=== PATIENT | male | born 1965 | race American Indian/Alaskan Native ===

== ENCOUNTER 2018-12-24 05:56 | Day surgery (SDC) | payer MEDICARE ==
[2018-12-24] MEDS ORDERED: NEURONTIN PO NR (07:00)
[2018-12-24] MEDS ORDERED: NACL 0.9% 1000 ML 1,000 ML IV SCH (07:00)
[2018-12-24] MEDS ORDERED: VERSED IV NR (07:00)
[2018-12-24] MEDS ORDERED: MARCAINE 0.25% INFILTRATI ONE (07:29)
[2018-12-24] MEDS ORDERED: TRIPLE ANTIBIOTIC TP ONE (07:29)
[2018-12-24] MEDS ORDERED: ANCEF/STERILE WATER 2 GM/20 ML 2 GM/20 ML SYRINGE IV NR (07:38)
[2018-12-24] MEDS ORDERED: DOLOPHINE PO ONE (07:43)
[2018-12-24] MEDS ORDERED: DIPRIVAN 10 MG/ML IV ONE (07:51)
[2018-12-24] MEDS ORDERED: DILAUDID ONE (07:51)
--- NOTE | 2018-12-24 08:37 | Anesthesia Day of Surgery ---
Anesthesia Day of Surgery - Day of Surgery Patient Examined: Yes Patient H&P Reviewed: Yes Patient is NPO: Yes
--- NOTE | 2018-12-24 08:37 | Anesthesia Consultation ---
Anesthesia Consult and Med Hx Date of service: 12/24/18 - Airway Anesthetic Teeth Evaluation: Good ROM Head & Neck: Adequate Mental/Hyoid Distance: Adequate Mallampati Class: Class II Intubation Access Assessment: Probably Good - Pulmonary Exam CTA: Yes - Cardiac Exam Cardiac Exam: RRR - Pre-Operative Health Status ASA Pre-Surgery Classification: ASA3 Proposed Anesthetic Plan: General - Pulmonary Hx Smoking: Yes (STOPPED X 10 YRS) Hx Asthma: No Hx Respiratory Symptoms: No COPD: No Hx Sleep Apnea: Yes (DX SLEEP APNEA WITH CPAP USE.) - Cardiovascular System Hx Hypertension: Yes Hx Heart Attack/AMI: No Hx Percutaneous Transluminal Coronary Angioplasty (PTCA): No Hx Cardia Arrhythmia: No - Central Nervous System Hx Seizures: No CVA: No Hx Back Pain: Yes (CHRONIC BACK AND LEFT LEG PAIN) Hx Psychiatric Problems: Yes (Bipolar d/o) - Gastrointestinal Hx Gastroesophageal Reflux Disease: No - Endocrine Hx Renal Disease: No Hx Liver Disease: Yes (HBV) Hx Non-Insulin Dependent Diabetes: Yes - Other Systems Hx Obesity: Yes - Additional Comments Anesthesia Medical History Comments: No hx anesthetic complications. Will give home dose methadone and gabapentin in [facility] as patient did not take scheduled morning medications.
[2018-12-24] MEDS ORDERED: XYLOCAINE MPF 2% ONE (09:38)
[2018-12-24] MEDS ORDERED: NACL 0.9% IR ONE (09:41)
--- NOTE | 2018-12-24 09:42 | Post Operative Note ---
Date of procedure: 12/24/18 Pre-op diagnosis: PHIMOSIS SKIN LESION Post-op diagnosis: same Findings: SAME Procedure: CIRC EXCISION LESION Anesthesia: GETA Surgeon: LLOYD MIRANDA Estimated blood loss: minimal Pathology: list (SLIN AND FORESKIN) Specimen disposition: to lab Condition: stable Disposition: PACU
--- NOTE | 2018-12-24 09:43 | Operative Report ---
PREOPERATIVE DIAGNOSES: Severe phimosis and right thigh nodule. POSTOPERATIVE DIAGNOSES: Severe phimosis and right thigh nodule. PROCEDURE PERFORMED: Circumcision dorsal slit and excision of thigh nodule. SURGEON: Luis Angel Paulson M.D. ANESTHESIA: General. FINDINGS: This is a gentleman with severe phimosis. He is diabetic and could not retract the foreskin at all. It is erythematous and you could not see the head of the penis at all. He also has a lesion, right lateral thigh. Wants it excised. DESCRIPTION OF PROCEDURE: The patient was brought to the operating room and placed on the operating table. Following induction of anesthesia, placed in supine position, prepped and draped in usual sterile fashion. Using Betadine, we cleaned the foreskin as best as we could and a dorsal slit was carried out. We were then able to see the glans. Once we had the area marked out with a marking pencil, we will make the skin incision. A small ventral slit was carried out and using a curved Blank[place]hip, the infected and inflamed and thickened skin was excised. Hemostasis was assured with 3-0 Vicryl ties and the cautery as needed. Sutures were placed at 12, 3, 6, and 9 o'clock position and each quadrant was bisected. There was a large amount of redundant skin, which had to be trimmed and reconstructed. Wound was irrigated. The sutures were applied mostly with 3-0 and 4-0 chromic. The patient tolerated the procedure well. Hemostasis was excellent. Estimated blood loss was 5 mL. The patient was then rotated to his left and this large thigh lesion was excised. The area was undermined and we used 2 sutures of 2-0 nylon to approximate the skin. The patient tolerated the procedure well. He was brought to recovery room in stable condition. JOB# [id number] PAIGE/PADMA
--- NOTE | 2018-12-24 09:44 | Discharge Summary ---
Short Stay Discharge Plan Activity: other (NO SEX ) Weight Bearing Status: Full Weight Bearing Diet: diabetic Wound: open to air, keep clean and dry Special Instructions: other (ICE IN RR ) Durable Medical Equipment Needed Upon Discharge: other Follow up with: CRUZITO ARAYA MD [Primary Care Provider] - 7 Days LLOYD MIRANDA MD [Staff Physician] - 7 Days
--- NOTE | 2018-12-24 09:54 | Progress Note ---
Objective - Constitutional Vitals: Vital Signs - 12hr 12/24/18 12/24/18 12/24/18 07:10 07:22 08:05 Temperature 98.3 F 98.3 F Pulse Rate 85 85 Respiratory 22 22 20 Rate Blood Pressure 145/86 145/86 O2 Sat by Pulse 95 95 Oximetry - Labs CBC & Chem 7: 12/24/18 06:45 Labs: Abnormal lab results 12/24/18 12/24/18 Range/Units 06:45 06:59 Potassium 3.4 L (3.6-5.0) mmol/L POC Glucose 207 H (70-105) Medications & Allergies - Medications Allergies/Adverse Reactions: Allergies shellfish derived Adverse Reaction (Verified 09/25/13 10:55) Vomiting Home Medications: Home Medications Medication Instructions Recorded Confirmed Last Taken Type Citalopram [celeXA] 40 mg PO QDAY 07/22/15 12/12/18 07/22/15 History Furosemide [Lasix] 20 mg PO QDAY 07/22/15 12/12/18 07/22/15 History Gabapentin [Neurontin] 800 mg PO TID 07/22/15 12/12/18 07/22/15 History HYDROcodone/APAP 5-325 [Commiskey 1 each PO PRN PRN 07/22/15 12/12/18 07/22/15 History 5/325] Lisinopril [Zestril TAB] 20 mg PO QDAY 07/22/15 12/12/18 07/22/15 History Metformin HCl [Glucophage] 1,000 mg PO BID 07/22/15 12/12/18 07/22/15 History Methadone [Dolophine] 10 mg PO TID 07/22/15 12/12/18 07/22/15 History Pravastatin [Pravachol] 40 mg PO QHS 07/22/15 12/12/18 07/22/15 History risperiDONE [RisperiDONE] 4 mg PO BID 07/22/15 12/12/18 07/22/15 History Cyclobenzaprine [Flexeril 10 MG 10 mg PO PRN PRN 12/12/18 12/12/18 Unknown History TAB] Ibuprofen [Motrin] 800 mg PO Q8HR PRN 12/12/18 12/12/18 Unknown History Lispro Insulin [Humalog] 30 unit SQ BID 12/13/18 12/13/18 Unknown History Active Medications: Generic Name Dose Route Start Last Admin Trade Name Alexis PRN Reason Stop Dose Admin Gabapentin 900 mg 12/24/18 07:00 12/24/18 07:40 Neurontin PO 12/24/18 20:00 900 mg PREOP NR Administration Hydromorphone HCl 0.5 mg 12/24/18 08:39 Dilaudid IV 12/24/18 20:00 Q10MIN PRN Pain , Severe (7-10) Sodium Chloride 1,000 mls @ 75 mls/hr 12/24/18 07:00 12/24/18 07:04 Nacl 0.9% 1000 Ml IV 75 mls/hr DIRECT SHELLIE Administration Midazolam HCl 2 mg 12/24/18 07:00 12/24/18 07:41 Versed IV 12/24/18 23:59 2 mg PREOP NR Administration
[2018-12-24] MEDS: DILAUDID IV PRN ×2 (09:55→10:02)
[2018-12-24 11:04] VITALS: BP 151/97
--- NOTE | 2018-12-24 13:17 | Post Anesthesia Evaluation ---
- Post Anesthesia Evaluation Patient Participated: Yes Airway Patent: Yes Stable Respiratory Function: Yes Nausea/Vomiting: No Temp > 96.8F: Yes Pain Manageable: Yes Adequeate Hydration: Yes Anesthesia Complications: No
== END 2018-12-24 05:57 | disposition home or self-care (01) ==
LOC: OR 05:56
PROVIDERS: ATTEND Urology
DX: N47.1 Phimosis (principal); L91.8 Other hypertrophic disorders of the skin; E11.39 Type 2 diabetes mellitus with other diabetic ophthalmic complication; H42 Glaucoma in diseases classified elsewhere; E78.00 Pure hypercholesterolemia, unspecified; I10 Essential (primary) hypertension; G47.30 Sleep apnea, unspecified; M19.90 Unspecified osteoarthritis, unspecified site; F31.9 Bipolar disorder, unspecified; E66.9 Obesity, unspecified; Z68.43 Body mass index [BMI] 50.0-59.9, adult; Z91.81 History of falling; Z91.013 Allergy to seafood; Z79.899 Other long term (current) drug therapy; Z79.4 Long term (current) use of insulin; Z79.84 Long term (current) use of oral hypoglycemic drugs; Z87.891 Personal history of nicotine dependence
CPT/HCPCS: 11200; 36415; 54150; 82962; 84132; 88304; A4217; J1170; J2250; J2704; J7030; A6250

== ENCOUNTER 2022-06-28 10:29 | Inpatient (IN) | payer MEDICARE ==
--- NOTE | 2022-06-28 13:08 | XRay Report ---
CHEST 2 VIEWS INDICATION / CLINICAL INFORMATION: Dyspnea. COMPARISON: 12/11/2019 FINDINGS: SUPPORT DEVICES: None. HEART / MEDIASTINUM: No significant abnormality. LUNGS / PLEURA: There are patchy predominantly perihilar pulmonary opacities greater on the right. No effusion is seen. No pneumothorax. ADDITIONAL FINDINGS: No significant additional findings. IMPRESSION: 1. Mild patchy predominantly perihilar pulmonary opacities greater on the right. Signer Name: Phoenix Gutierrez MD Signed: 06/28/2022 1:04 PM Workstation Name: [id number]
[2022-06-28] MEDS ORDERED: SODIUM CHLORIDE 0.9% 1000 ML 1,000 ML IV ONE (13:40)
[2022-06-28 13:43] LABS: Basophils # (Auto) 0.1 K/mm3 (0.0-0.1); Basophils % (Auto) 0.7 % (0.0-1.8); Eosinophils # (Auto) 0.5 K/mm3 (0.0-0.4); Eosinophils % (Auto) 3.7 % (0.0-4.3); Hematocrit 28.3 % (35.5-45.6); Hemoglobin 8.9 gm/dl (11.8-15.2); Lymphocytes # (Auto) 1.2 K/mm3 (1.2-5.4); Mean Corpuscular HGB Conc 32 % (32-34); Mean Corpuscular Volume 79 fl (84-94); Monocytes # (Auto) 1.5 K/mm3 (0.0-0.8); Monocytes % (Auto) 12.3 % (0.0-7.3); Platelet Count 256 K/mm3 (140-440); Red Blood Count 3.56 M/mm3 (3.65-5.03); Red Cell Distribution Width 17.6 % (13.2-15.2)
[2022-06-28 14:11] LABS: Alanine Aminotransferase 7 units/L (7-56); Albumin 3.7 g/dL (3.9-5); BUN/Creatinine Ratio 19; Blood Urea Nitrogen 36 mg/dL (9-20); Calcium 8.8 mg/dL (8.4-10.2); Hemolysis Index 0
[2022-06-28 15:01] LABS: INR 0.94 (0.87-1.13)
[2022-06-28 15:02] LABS: Partial Thromboplastin Time 35.1 Sec. (24.2-36.6)
--- NOTE | 2022-06-28 16:05 | Emergency Department Report ---
ED Shortness of Breath HPI - General Chief Complaint: Dyspnea/Respdistress Stated Complaint: COUGH UP BLOOD Time Seen by Provider: 06/28/22 15:32 Source: patient Mode of arrival: Ambulatory Limitations: Language Barrier - History of Present Illness Initial Comments: Patient is a 57-year-old male presented emergency department with complaint of shortness of breath. Patient states that he has been coughing up blood. He states that this happened on today although he has had cough for his sleep for the past 1 week. He also notes right leg swelling but he states the swelling has been present for a while and states that he is he previously suffered an injury in the right leg and has swelling since 2019. Patient denies history of blood clots in the legs or lungs and is not currently on any blood thinners. He states he has not seen a case management associate nor has he had a stress test. He reports his past medical history is diabetes and hypertension. He denies any orthopnea states he sleeps on his side. He denies any chest pain fever. - Related Data Home Medications Medication Instructions Recorded Confirmed Last Taken Gabapentin [Neurontin] 800 mg PO TID 07/22/15 12/11/19 12/10/19 Metformin HCl [Glucophage] 1,000 mg PO BID 07/22/15 12/11/19 12/10/19 Pravastatin [Pravachol] 40 mg PO QHS 07/22/15 12/11/19 12/10/19 risperiDONE [RisperiDONE] 4 mg PO BID 07/22/15 12/11/19 12/10/19 Aspirin 81 mg PO DAILY 12/11/19 12/11/19 12/10/19 Methadone 40 mg PO TID 12/11/19 12/11/19 12/10/19 Previous Rx's Medication Instructions Recorded Last Taken Type Aspirin EC [Halfprin EC] 81 mg PO QDAY tablet 12/19/19 Unknown Rx Citalopram 40 mg PO DAILY #30 12/19/19 Unknown Rx Citalopram [Celexa] 40 mg PO DAILY tablet 12/19/19 Unknown Rx Cyclobenzaprine [Flexeril 10 MG 10 mg PO PRN PRN #12 12/19/19 Unknown Rx TAB] Methadone [Dolophine] 40 mg PO Q8HR #12 tablet 12/19/19 Unknown Rx Metoprolol [Lopressor TAB] 50 mg PO BID #60 tablet 12/19/19 Unknown Rx lisinopriL [Zestril TAB] 20 mg PO QDAY #30 12/19/19 Unknown Rx oxyCODONE /ACETAMINOPHEN [Percocet 1 tab PO Q6H PRN #8 tablet 12/19/19 Unknown Rx 5/325 mg] risperiDONE [RisperDAL] 1 mg PO BID tablet 12/19/19 Unknown Rx risperiDONE [RisperDAL] 3 mg PO BID tablet 12/19/19 Unknown Rx Allergies Allergy/AdvReac Type Severity Reaction Status Date / Time shellfish derived AdvReac Vomiting Verified 06/28/22 12:23 ED Review of Systems ROS: Stated complaint: COUGH UP BLOOD Other details as noted in HPI Constitutional: denies: chills, fever Eyes: denies: eye pain, eye discharge, vision change ENT: denies: ear pain, throat pain Respiratory: cough, shortness of breath, SOB with exertion. denies: wheezing Cardiovascular: denies: chest pain, palpitations Endocrine: no symptoms reported Gastrointestinal: denies: abdominal pain, nausea, diarrhea Genitourinary: denies: urgency, dysuria Musculoskeletal: denies: back pain, joint swelling, arthralgia Skin: denies: rash, lesions Neurological: denies: headache, weakness, paresthesias Psychiatric: denies: anxiety, depression Hematological/Lymphatic: easy bleeding. denies: easy bruising ED Past Medical Hx - Past Medical History Hx Hypertension: Yes (CXR - Cardiomegaly with diminished lung volumes) Hx Heart Attack/AMI: No Hx Diabetes: Yes Hx Liver Disease: Yes (HBV) Hx Renal Disease: No Hx Arthritis: Yes Hx Seizures: No Hx Asthma: Yes Hx COPD: No Hx HIV: No - Surgical History Additional Surgical History: back surgery x 4 - Social History Smoking Status: Former Smoker - Medications Home Medications: Home Medications Medication Instructions Recorded Confirmed Last Taken Type Gabapentin [Neurontin] 800 mg PO TID 07/22/15 12/11/19 12/10/19 History Metformin HCl [Glucophage] 1,000 mg PO BID 07/22/15 12/11/19 12/10/19 History Pravastatin [Pravachol] 40 mg PO QHS 07/22/15 12/11/19 12/10/19 History risperiDONE [RisperiDONE] 4 mg PO BID 07/22/15 12/11/19 12/10/19 History Aspirin 81 mg PO DAILY 12/11/19 12/11/19 12/10/19 History Methadone 40 mg PO TID 12/11/19 12/11/19 12/10/19 History Aspirin EC [Halfprin EC] 81 mg PO QDAY tablet 12/19/19 Unknown Rx Citalopram 40 mg PO DAILY #30 12/19/19 Unknown Rx Citalopram [Celexa] 40 mg PO DAILY tablet 12/19/19 Unknown Rx Cyclobenzaprine [Flexeril 10 MG 10 mg PO PRN PRN #12 12/19/19 Unknown Rx TAB] Methadone [Dolophine] 40 mg PO Q8HR #12 tablet 12/19/19 Unknown Rx Metoprolol [Lopressor TAB] 50 mg PO BID #60 tablet 12/19/19 Unknown Rx lisinopriL [Zestril TAB] 20 mg PO QDAY #30 12/19/19 Unknown Rx oxyCODONE /ACETAMINOPHEN [Percocet 1 tab PO Q6H PRN #8 tablet 12/19/19 Unknown Rx 5/325 mg] risperiDONE [RisperDAL] 1 mg PO BID tablet 12/19/19 Unknown Rx risperiDONE [RisperDAL] 3 mg PO BID tablet 12/19/19 Unknown Rx ED Physical Exam - General Limitations: Language Barrier General appearance: alert, in no apparent distress - Head Head exam: Present: atraumatic, normocephalic - Eye Eye exam: Present: normal appearance - ENT ENT exam: Present: mucous membranes moist - Neck Neck exam: Present: normal inspection - Respiratory Respiratory exam: Present: normal lung sounds bilaterally. Absent: respiratory distress - Cardiovascular Cardiovascular Exam: Present: regular rate, normal rhythm. Absent: systolic murmur, diastolic murmur, rubs, gallop - GI/Abdominal GI/Abdominal exam: Present: soft, normal bowel sounds - Rectal Rectal exam: Present: deferred - Extremities Exam Extremities exam: Present: other (There is edema noted bilaterally in the legs with right greater than left.) - Back Exam Back exam: Present: normal inspection - Neurological Exam Neurological exam: Present: alert, oriented X3 - Psychiatric Psychiatric exam: Present: normal affect, normal mood - Skin Skin exam: Present: warm, dry, intact, normal color. Absent: rash ED Course Vital Signs 06/28/22 12:12 Temperature 97.7 F Pulse Rate 70 Respiratory 16 Rate Blood Pressure 144/74 [Right] O2 Sat by Pulse 93 Oximetry - Reevaluation(s) Reevaluation #1: 06/28/22 16:04 I received a call from radiology stating that his study is suggestive of pulmonary embolism but technically is nondiagnostic. They recommend that we do a VQ scan or repeat CTA. Given that patient's creatinine is 1.9 I do not feel comfortable repeating a CTA will instead plan for VQ scan. Will reassess patient and decide on heparin while patient undergoes V/Q. We will also order bilateral ultrasounds of the lower extremities to evaluate for DVT. Patient's chest x-ray notes bilateral opacities this is also concerning for possible infection so patient may also require antibiotic coverage. Patient is also noted to have hemoglobin of 8.9. Will discuss with patient to see if he has evidence of bleeding other than coughing up blood. Reevaluation #2: 06/28/22 17:35 Discussed results with patient. Patient states she has history of anemia. Given this plan for patient to be started on heparin and we will monitor closely for additional bleeding. I have also spoken to the hospitalist who will admit the patient. I have also started patient on antibiotics for possible multifocal pneumonia. The hospitalist recommends that I contact vascular as patient may need EKOS. ED Medical Decision Making - Lab Data Result diagrams: 06/28/22 12:46 06/28/22 12:46 - EKG Data -: EKG Interpreted by Me - Radiology Data Radiology results: report reviewed, image reviewed - Medical Decision Making Patient is a 57-year-old male presenting to the emergency department with complaint of shortness of breath and coughing up blood. Differential includes pneumonia, pulmonary hemorrhage, pulmonary embolism. Triage has ordered a CT of the chest which has already been completed. Patient's labs are notable for anemia, elevated creatinine. Patient is receiving IV fluids when I have evaluated him. Patient also had basic labs and chest x-ray completed. Critical care attestation.: If time is entered above; I have spent that time in minutes in the direct care of this critically ill patient, excluding procedure time. ED Disposition Clinical Impression: Pulmonary embolism, Pneumonia Disposition: 09 ADMITTED INPATIENT Is pt being admited?: Yes Does the pt Need Aspirin: No Condition: Stable Instructions: Bacterial Pneumonia (ED)
--- NOTE | 2022-06-28 16:05 | Cat Scan Report ---
CTA CHEST WITH CONTRAST INDICATION / CLINICAL INFORMATION: CP HEMOPTYSIS. TECHNIQUE: Axial CT images were obtained through the chest after injection of IV contrast. 3 plane AZ P and/or 3D reconstructions were produced. All CT scans at this location are performed using CT dose reduction for ALARA by means of automated exposure control. COMPARISON: CTA chest 12/12/2019, 07/22/2015, chest radiograph of same date. FINDINGS: Extremely limited evaluation of the pulmonary arteries due to contrast bolus timing and concentration . PULMONARY EMBOLUS: Questionable large filling defect within the distal lobar branch of the right lowe r lobe. Similar questionable filling defects are seen within segmental branches of the right upper lo be. Additional filling defects within the lungs cannot be excluded. The main pulmonary artery is mild ly enlarged measuring up to 34 mm in cross-section. THORACIC AORTA: Mild atherosclerotic calcification without acute abnormality. HEART: Normal heart size. CORONARY ARTERY CALCIFICATION: Absent -- None. MEDIASTINUM / TISH: No significant abnormality. PLEURA: No pleural effusion. No pneumothorax. LUNGS: There are patchy areas of consolidation throughout the entirety of the right lower lobe and mu ch of the central right upper lobe. There is a 6 mm pulmonary nodule within the right middle lobe (se aaron 4 image 206) which is present dating back to 07/22/2015. ADDITIONAL FINDINGS: None. UPPER ABDOMEN: No acute findings. SKELETAL STRUCTURES: No significant osseous abnormality. IMPRESSION: 1. Essentially nondiagnostic evaluation of the pulmonary arteries due to poor contrast bolus timing a nd concentration. 2. Questionable large hypodensity within the distal lobar branch of the right lower lobe. This has th e potential to represent a large pulmonary embolism, however this cannot be definitively stated given the limitations of this study. Additional smaller hypodensities may be present within segmental bran ches of the upper and lower lobes as well. 3. Patchy areas of consolidation are seen throughout the right lower lobe and much of the central rig ht upper lobe. This may represent multifocal pneumonia, however they are concerning for developing pu lmonary infarction in the potential setting of PE. 4. The main pulmonary artery is mildly enlarged measuring 34 mm in cross-section, which can be seen i n the setting of pulmonary artery hypertension. CRITICAL RESULT: Questionable large pulmonary embolism with developing pulmonary infarctions within t he right lung. Time of Discovery (CANDLES POURER/CDT): 2:45 PM Time of Communication (CANDLES POURER/CDT): 2:59 PM Licensed Practitioner Receiving Report: Dr. Nichole Morgan Read-Back Performed: Yes. Signer Name: Jagdish Ash MD Signed: 06/28/2022 4:01 PM Workstation Name: [id number] [id number]
[2022-06-28] MEDS ORDERED: HEPARIN 10,000 UNITS/10 ML VIAL IV PRN (16:41)
[2022-06-28] MEDS ORDERED: HEPARIN 10,000 UNITS/10 ML VIAL IV ONE ×3 (16:41)
--- NOTE | 2022-06-28 17:09 | Vascular Lab Report ---
DUPLEX DOPPLER LOWER EXTREMITY VEINS, BILATERAL INDICATION / CLINICAL INFORMATION: PE; eval for DVTs. TECHNIQUE: Duplex doppler imaging was performed through the veins of both lower extremities using mikel ous compression and other maneuvers. COMPARISON: None available. FINDINGS: RIGHT COMMON FEMORAL VEIN: Negative. RIGHT FEMORAL VEIN: Negative. RIGHT POPLITEAL VEIN: Negative. RIGHT CALF VEINS: Negative. LEFT COMMON FEMORAL VEIN: Negative. LEFT FEMORAL VEIN: Negative. LEFT POPLITEAL VEIN: Negative. LEFT CALF VEINS: Negative. ADDITIONAL FINDINGS: None. IMPRESSION: 1. The exam is limited due to patient body habitus. Accounting for this, no sonographic evidence for DVT in either lower extremity. Signer Name: Phoenix Gutierrez MD Signed: 06/28/2022 5:04 PM Workstation Name: [id number]
[2022-06-28 17:13] LABS: INR 1.05 (0.87-1.13)
[2022-06-28 17:14] LABS: Partial Thromboplastin Time 35.1 Sec. (24.2-36.6)
[2022-06-28] MEDS ORDERED: AZITHROMYCIN/NS 500 MG/250 ML 500 MG/250 ML BAG IV ONE (17:27)
--- NOTE | 2022-06-28 17:28 | History and Physical Report ---
History of Present Illness Chief complaint: I was coughing up blood today History of present illness: 57 YO Male with Obesity Hypoventilation Syndrome, HTN, HLD, DM, Metabolic Syndrome, OA, HBV, Mild Intermittent Asthma, Narcotic Dependence, Chronic Pain Syndrome on Methadone Maintenance Program presents to ED for evaluation. Patient reports "I was coughing up blood today". Patient states that he has experienced multiple coughing episodes during his sleep over the past week. Patient states that he also experienced multiple episodes of coughing up blood. Patient acknowledges shortness of breath today. Patient transported to [facility] via private vehicle for further care and evaluation of the aforementioned symptoms. The patient was seen and evaluated in the emergency department. All lab and imaging studies reviewed. Patient to have pneumonia, as well as suspected right pulmonary embolus, as well as chronic right pulmonary nodule. Patient underwent CT angio of the chest which was inconclusive but suggestive of right lower lobe pulmonary embolism. VQ scan ordered and pending at time of admission. Patient initiated on therapeutic anticoagulation in the emergency department prior to my evaluation. Patient mated to medical floor due to increased risk of worsening symptoms after medical stabilization. Patient initiated on pneumonia protocol. Patient denies fever, chills, palpitation, skin rash, recent contact, known exposure to COVID-19. Prior admission on 12/10/2019 reviewed. All medication listed at time of admission has been reconciled. Advanced care planning conducted in ED. Past History Past Medical History: diabetes, hypertension, hyperlipidemia Past Surgical History: Other (Back surgery x4) Social history: . denies: smoking Family history: diabetes, hypertension Medications and Allergies Allergies Allergy/AdvReac Type Severity Reaction Status Date / Time shellfish derived AdvReac Vomiting Verified 06/28/22 12:23 Home Medications Medication Instructions Recorded Confirmed Last Taken Type Gabapentin [Neurontin] 800 mg PO TID 07/22/15 12/11/19 12/10/19 History Metformin HCl [Glucophage] 1,000 mg PO BID 07/22/15 12/11/19 12/10/19 History Pravastatin [Pravachol] 40 mg PO QHS 07/22/15 12/11/19 12/10/19 History risperiDONE [RisperiDONE] 4 mg PO BID 07/22/15 12/11/19 12/10/19 History Aspirin 81 mg PO DAILY 12/11/19 12/11/19 12/10/19 History Methadone 40 mg PO TID 12/11/19 12/11/19 12/10/19 History Aspirin EC [Halfprin EC] 81 mg PO QDAY tablet 12/19/19 Unknown Rx Citalopram 40 mg PO DAILY #30 12/19/19 Unknown Rx Citalopram [Celexa] 40 mg PO DAILY tablet 12/19/19 Unknown Rx Cyclobenzaprine [Flexeril 10 MG 10 mg PO PRN PRN #12 12/19/19 Unknown Rx TAB] Methadone [Dolophine] 40 mg PO Q8HR #12 tablet 12/19/19 Unknown Rx Metoprolol [Lopressor TAB] 50 mg PO BID #60 tablet 12/19/19 Unknown Rx lisinopriL [Zestril TAB] 20 mg PO QDAY #30 12/19/19 Unknown Rx oxyCODONE /ACETAMINOPHEN [Percocet 1 tab PO Q6H PRN #8 tablet 12/19/19 Unknown Rx 5/325 mg] risperiDONE [RisperDAL] 1 mg PO BID tablet 12/19/19 Unknown Rx risperiDONE [RisperDAL] 3 mg PO BID tablet 12/19/19 Unknown Rx Active Meds: Active Medications Heparin Sodium (Porcine) (Heparin 10,000 Units/10 Ml Vial) 5,000 unit IV Q6H PRN PRN Reason: Anti-Xa Assay < 0.1 units/ml Heparin Sodium/Sodium Chloride (Heparin/ 0.45% Nacl-25,000 Unit/500 Ml) 25,000 unit in 500 mls @ 30 mls/hr IV TITR SHELLIE; Protocol Review of Systems Constitutional: no weight loss, no weight gain, no fever, no chills Ears, nose, mouth and throat: no ear pain, no ear discharge, no decreased hearing, no nose pain Cardiovascular: no chest pain, no palpitations Respiratory: cough, hemoptysis, no congestion, no wheezing Gastrointestinal: no abdominal pain, no nausea, no vomiting, no diarrhea, no constipation Genitourinary Male: no hematuria, no flank pain, no discharge, no urinary frequency, no urinary hesitancy Rectal: no pain, no incontinence, no bleeding Musculoskeletal: no neck stiffness, no neck pain, no shooting arm pain, no arm numbness/tingling, no low back pain Integumentary: no rash, no pruritis, no redness, no sores, no wounds, no jaundice Neurological: no head injury, no transient paralysis, no weakness, no tingling, no seizures, no syncope Psychiatric: no anxiety, no sleep disturbances, no insomnia, no change in appetite, no suicidal ideation Endocrine: no heat intolerance, no polyphagia, no excessive thirst, no polydipsia, no nocturia, no excessive sweating Hematologic/Lymphatic: no easy bruising Allergic/Immunologic: no urticaria, no allergic rhinitis, no wheezing, no anaphylaxis Exam - Constitutional Vitals: Temp Pulse Resp BP Pulse Ox 97.7 F 70 16 144/74 93 06/28/22 12:12 06/28/22 12:12 06/28/22 12:12 06/28/22 12:12 06/28/22 12:12 General appearance: Present: mild distress, obese - EENT Eyes: Present: PERRL ENT: hearing intact, clear oral mucosa - Neck Neck: Present: supple, normal ROM - Respiratory Respiratory effort: normal Respiratory: bilateral: CTA - Cardiovascular Heart Sounds: Present: S1 & S2. Absent: rub, click - Extremities Extremities: pulses symmetrical, No edema Peripheral Pulses: within normal limits - Abdominal General gastrointestinal: Present: soft, non-tender, non-distended, normal bowel sounds Male genitourinary: Present: normal - Integumentary Integumentary: Present: clear, warm, dry - Musculoskeletal Musculoskeletal: gait normal, strength equal bilaterally - Psychiatric Psychiatric: appropriate mood/affect, intact judgment & insight - Neurologic Neurologic: CNII-XII intact, moves all extremities HEART Score - HEART Score Troponin: Troponin T < 0.010 ng/mL (0.00-0.029) 06/28/22 12:46 Results - Labs CBC & Chem 7: 06/28/22 17:07 06/28/22 12:46 Labs: Abnormal lab results 06/28/22 06/28/22 06/28/22 Range/Units 12:46 12:46 15:13 WBC 12.4 H (4.5-11.0) K/mm3 RBC 3.56 L (3.65-5.03) M/mm3 Hgb 8.9 L (11.8-15.2) gm/dl Hct 28.3 L (35.5-45.6) % MCV 79 L (84-94) fl MCH 25 L (28-32) pg RDW 17.6 H (13.2-15.2) % Lymph % (Auto) 10.0 L (13.4-35.0) % [place] % (Auto) 12.3 H (0.0-7.3) % [place] # (Auto) 1.5 H (0.0-0.8) K/mm3 Eos # (Auto) 0.5 H (0.0-0.4) K/mm3 Seg Neutrophils % 73.3 H (40.0-70.0) % Seg Neutrophils # 9.1 H (1.8-7.7) K/mm3 D-Dimer (0-234) ng/mlDDU Sodium 136 L (137-145) mmol/L Potassium 5.3 H (3.6-5.0) mmol/L Chloride 96.8 L (98-107) mmol/L BUN 36 H (9-20) mg/dL Creatinine 1.9 H (0.8-1.3) mg/dL Glucose 106 H (75-100) mg/dL NT-Pro-B Natriuret Pep 2480 H (0-900) pg/mL Albumin 3.7 L (3.9-5) g/dL 06/28/ Range/Units 16:18 WBC (4.5-11.0) K/mm3 RBC (3.65-5.03) M/mm3 Hgb (11.8-15.2) gm/dl Hct (35.5-45.6) % MCV (84-94) fl MCH (28-32) pg RDW (13.2-15.2) % Lymph % (Auto) (13.4-35.0) % [place] % (Auto) (0.0-7.3) % [place] # (Auto) (0.0-0.8) K/mm3 Eos # (Auto) (0.0-0.4) K/mm3 Seg Neutrophils % (40.0-70.0) % Seg Neutrophils # (1.8-7.7) K/mm3 D-Dimer 306.39 H (0-234) ng/mlDDU Sodium (137-145) mmol/L Potassium (3.6-5.0) mmol/L Chloride (98-107) mmol/L BUN (9-20) mg/dL Creatinine (0.8-1.3) mg/dL Glucose (75-100) mg/dL NT-Pro-B Natriuret Pep (0-900) pg/mL Albumin (3.9-5) g/dL Assessment and Plan - Patient Problems (1) Pneumonia Current Visit: Yes Status: Acute Plan to address problem: Pneumonia protocol: Chest x-ray, CBC, CMP, IV antibiotic therapy, supplemental oxygen, pulse oximetry, nebulizer therapy. (2) Pulmonary embolism Current Visit: Yes Status: Acute Qualifiers: Chronicity: acute Plan to address problem: CT angio chest was inconclusive. VQ scan ordered and pending at time of admission. Therapeutic anticoagulation initiated in the emergency department prior to my evaluation. Supportive care. (3) Obesity hypoventilation syndrome Current Visit: Yes Status: Acute Plan to address problem: Balanced diet, increase physical activity discharge, outpatient pulmonary f ollow-up for sleep study. (4) Narcotic dependence Current Visit: Yes Status: Acute Plan to address problem: Pain control, continue methadone maintenance program medication. Supportive care. (5) Chronic pain syndrome Current Visit: Yes Status: Acute Plan to address problem: Pain control, supportive care, patient currently enrolled in methadone maintenance program, continue current therapy. (6) Diabetes Current Visit: Yes Status: Acute Plan to address problem: Consistent carbohydrate diet, Accu-Chek, insulin protocol, hypoglycemia protocol. (7) Pulmonary nodule Current Visit: Yes Status: Acute Plan to address problem: Outpatient pulmonary follow-up. Patient pulmonary nodule present on previous CT 2 years ago. (8) Hemoptysis Current Visit: Yes Status: Acute Plan to address problem: Supportive care. CT a chest, patient is pending VQ scan. Primary team consulted in ED. (9) Hypertension Current Visit: Yes Status: Acute Qualifiers: Hypertension type: primary hypertension Qualified Code(s): I10 - Essential (primary) hypertension Plan to address problem: Monitor blood pressure every shift, continue medical management. (10) Hyperlipidemia Current Visit: Yes Status: Acute Qualifiers: Hyperlipidemia type: mixed hyperlipidemia Qualified Code(s): E78.2 - Mixed hyperlipidemia Plan to address problem: Statin therapy, supportive care, low-cholesterol diet. (11) Osteoarthritis Current Visit: Yes Status: Acute Plan to address problem: Pain control, supportive care. (12) DVT prophylaxis Current Visit: Yes Status: Acute Plan to address problem: SCD to bilateral lower extremities while in bed (13) Advance care planning Current Visit: Yes Status: Acute Plan to address problem: Disease education data, care plan discussed, diagnoses discussed, prognosis discussed, patient is full code. Patient knowledges understanding and agreement with care plan, +30 minutes. (14) Preventative health care Current Visit: Yes Status: Acute Plan to address problem: Patient counseled regarding balanced diet, outpatient bariatric surgery follow- up. Outpatient follow-up with primary care physician for all age and risk factor appropriate screening test. +30 minutes.
[2022-06-28 17:50] LABS: Hematocrit 25.5 % (35.5-45.6); Hemoglobin 8.3 gm/dl (11.8-15.2)
[2022-06-28] MEDS ORDERED: ONDANSETRON 4 MG/2 ML INJ IV PRN (18:24)
[2022-06-28] MEDS ORDERED: ALBUTEROL 2.5 MG/3 ML NEBU IH PRN (18:24)
[2022-06-28] MEDS ORDERED: HYDROmorphone 0.5 MG/0.5 ML INJ IV PRN (18:24)
[2022-06-28] MEDS ORDERED: ACETAMINOPHEN 325 MG TAB PO PRN (18:24)
[2022-06-28] MEDS ORDERED: CYCLOBENZAPRINE 10 MG TAB PO PRN (18:26)
[2022-06-28] MEDS ORDERED: METHADONE 40 MG PO SCH (20:00)
[2022-06-28] MEDS ORDERED: NON-FORMULARY EACH (Gabapentin [Neurontin] 800 MG Tablet) PO SCH (20:00)
[2022-06-28] MEDS: GABAPENTIN 400 MG CAP PO SCH (20:34)
[2022-06-28] MEDS: cefTRIAXone/NS 2 GM/100 ML 2 GM/100 ML BAG IV SCH (20:34)
[2022-06-28] MEDS ORDERED: RISPERIDONE 4 MG PO SCH (22:00)
[2022-06-28] MEDS: METHADONE 10 MG TAB PO SCH (23:26)
[2022-06-28] MEDS: risperiDONE 1 MG TAB PO SCH (23:28)
[2022-06-28] MEDS: METOPROLOL TARTRATE 50 MG TAB PO SCH (23:28)
[2022-06-28] MEDS: PRAVASTATIN 40 MG TAB PO SCH (23:28)
[2022-06-28] MEDS: HEPARIN/ 0.45% NACL DRIP 25,000 UNIT/500 ML BAG IV SCH (23:40)
[2022-06-29] MEDS: METHADONE 10 MG TAB PO SCH ×3 (06:11→21:43)
[2022-06-29 08:00] LABS: Basophils # (Auto) 0.1 K/mm3 (0.0-0.1); Basophils % (Auto) 0.9 % (0.0-1.8); Eosinophils # (Auto) 0.5 K/mm3 (0.0-0.4); Eosinophils % (Auto) 5.5 % (0.0-4.3); Hematocrit 26.4 % (35.5-45.6); Hemoglobin 8.2 gm/dl (11.8-15.2); Lymphocytes # (Auto) 0.8 K/mm3 (1.2-5.4); Lymphocytes % (Auto) 9.2 % (13.4-35.0); Mean Corpuscular HGB Conc 31 % (32-34); Mean Corpuscular Volume 79 fl (84-94); Monocytes # (Auto) 1.2 K/mm3 (0.0-0.8); Monocytes % (Auto) 13.3 % (0.0-7.3); Platelet Count 242 K/mm3 (140-440); Red Blood Count 3.34 M/mm3 (3.65-5.03); Red Cell Distribution Width 17.5 % (13.2-15.2)
--- NOTE | 2022-06-29 08:06 | Nuclear Medicine Report ---
NUCLEAR MEDICINE PERFUSION SCAN INDICATION: abnormal CTA chest; PE; rads recommend VQ CORRELATION: CTA chest 06/28/2022 RADIOPHARMACEUTICAL: Perfusion: 5.5 mCi Tc-99m MAA given IV FINDINGS: Limited CTA of the chest performed earlier today was reviewed. Perfusion images show symmetric and un iform radiotracer distribution throughout bilateral lung zones with no evidence of unmatched segmenta l perfusion defects. Normal cardiac silhouette. IMPRESSION: No pulmonary arterial perfusion defect is detected on perfusion scan to suggest pulmonary embolism. Signer Name: Omero Pineda Jr, MD Signed: 06/29/2022 8:01 AM Workstation Name: [id number]
[2022-06-29] MEDS: risperiDONE 1 MG TAB PO SCH ×2 (09:34→21:45)
[2022-06-29] MEDS: METOPROLOL TARTRATE 50 MG TAB PO SCH ×2 (09:34→21:45)
[2022-06-29] MEDS: AZITHROMYCIN 250 MG TAB PO SCH (09:34)
[2022-06-29] MEDS: LISINOPRIL 20 MG TAB PO SCH (09:34)
[2022-06-29] MEDS: GABAPENTIN 400 MG CAP PO SCH ×3 (09:35→20:43)
[2022-06-29] MEDS: oxyCODONE /ACETAMINOPHEN 5-325MG TAB PO PRN ×2 (11:27→22:59)
[2022-06-29] MEDS: HEPARIN/ 0.45% NACL DRIP 25,000 UNIT/500 ML BAG IV SCH (14:38)
[2022-06-29] MEDS ORDERED: CYCLOBENZAPRINE 10 MG TAB PO PRN (15:00)
[2022-06-29] MEDS: SODIUM CHLORIDE 0.9% 1000 ML 1,000 ML IV SCH (15:31)
[2022-06-29] MEDS: CITALOPRAM 20 MG TAB PO SCH (15:31)
--- NOTE | 2022-06-29 16:05 | Progress Note ---
Assessment and Plan (1) Pneumonia Current Visit: Yes Status: Acute Plan to address problem: Pneumonia protocol: Chest x-ray, CBC, CMP, IV antibiotic therapy, supplemental oxygen, pulse oximetry, nebulizer therapy. (2) Pulmonary embolism Current Visit: Yes Status: Acute Qualifiers: Chronicity: acute Plan to address problem: CT angio chest was inconclusive. VQ scan ordered and pending at time of admission. Therapeutic anticoagulation initiated in the emergency department prior to my evaluation. Supportive care. (3) Obesity hypoventilation syndrome Current Visit: Yes Status: Acute Plan to address problem: Balanced diet, increase physical activity discharge, outpatient pulmonary follow-up for sleep study. (4) Narcotic dependence Current Visit: Yes Status: Acute Plan to address problem: Pain control, continue methadone maintenance program medication. Supportive care. (5) Chronic pain syndrome Current Visit: Yes Status: Acute Plan to address problem: Pain control, supportive care, patient currently enrolled in methadone maintenance program, continue current therapy. (6) Diabetes Current Visit: Yes Status: Acute Plan to address problem: Consistent carbohydrate diet, Accu-Chek, insulin protocol, hypoglycemia protocol. (7) Pulmonary nodule Current Visit: Yes Status: Acute Plan to address problem: Outpatient pulmonary follow-up. Patient pulmonary nodule present on previous CT 2 years ago. (8) Hemoptysis Current Visit: Yes Status: Acute Plan to address problem: Supportive care. CT a chest, patient is pending VQ scan. Primary team consulted in ED. (9) Hypertension Current Visit: Yes Status: Acute Qualifiers: Hypertension type: primary hypertension Qualified Code(s): I10 - Essential (primary) hypertension Plan to address problem: Monitor blood pressure every shift, continue medical management. (10) Hyperlipidemia Current Visit: Yes Status: Acute Qualifiers: Hyperlipidemia type: mixed hyperlipidemia Qualified Code(s): E78.2 - Mixed hyperlipidemia Plan to address problem: Statin therapy, supportive care, low-cholesterol diet. (11) Osteoarthritis Current Visit: Yes Status: Acute Plan to address problem: Pain control, supportive care. (12) DVT prophylaxis Current Visit: Yes Status: Acute Plan to address problem: SCD to bilateral lower extremities while in bed (13) Advance care planning Current Visit: Yes Status: Acute Plan to address problem: Disease education data, care plan discussed, diagnoses discussed, prognosis discussed, patient is full code. Patient knowledges understanding and agreement with care plan, +30 minutes. (14) Preventative health care Current Visit: Yes Status: Acute Plan to address problem: Patient counseled regarding balanced diet, outpatient bariatric surgery follow- up. Outpatient follow-up with primary care physician for all age and risk factor appropriate screening test. +30 minutes. Subjective Date of service: 06/29/22 Objective - Constitutional Vitals: Vital Signs - 12hr 06/29/22 06/29/22 06/29/22 06:04 08:21 11:27 Temperature 97.8 F 99.5 F Pulse Rate 73 68 Respiratory 16 22 Rate Blood Pressure 156/87 145/83 O2 Sat by Pulse 91 97 93 Oximetry - Labs CBC & Chem 7: 06/29/22 07:09 06/29/22 07:09 Labs: Abnormal lab results 06/28/22 06/28/22 06/28/22 Range/Units 15:13 16:18 17:07 RBC (3.65-5.03) M/mm3 Hgb 8.3 L (11.8-15.2) gm/dl Hct 25.5 L (35.5-45.6) % MCV (84-94) fl MCH (28-32) pg MCHC (32-34) % RDW (13.2-15.2) % Lymph % (Auto) (13.4-35.0) % [place] % (Auto) (0.0-7.3) % Eos % (Auto) (0.0-4.3) % Lymph # (Auto) (1.2-5.4) K/mm3 [place] # (Auto) (0.0-0.8) K/mm3 Eos # (Auto) (0.0-0.4) K/mm3 Seg Neutrophils % (40.0-70.0) % D-Dimer 306.39 H (0-234) ng/mlDDU Heparin Anti-Xa Level (0.3-0.7) U.I./ml Potassium (3.6-5.0) mmol/L BUN (9-20) mg/dL Creatinine (0.8-1.3) mg/dL NT-Pro-B Natriuret Pep 2480 H (0-900) pg/mL 06/29/22 06/29/22 06/29/22 Range/Units 07:09 07:09 07:09 RBC 3.34 L (3.65-5.03) M/mm3 Hgb 8.2 L (11.8-15.2) gm/dl Hct 26.4 L (35.5-45.6) % MCV 79 L (84-94) fl MCH 25 L (28-32) pg MCHC 31 L (32-34) % RDW 17.5 H (13.2-15.2) % Lymph % (Auto) 9.2 L (13.4-35.0) % [place] % (Auto) 13.3 H (0.0-7.3) % Eos % (Auto) 5.5 H (0.0-4.3) % Lymph # (Auto) 0.8 L (1.2-5.4) K/mm3 [place] # (Auto) 1.2 H (0.0-0.8) K/mm3 Eos # (Auto) 0.5 H (0.0-0.4) K/mm3 Seg Neutrophils % 71.1 H (40.0-70.0) % D-Dimer (0-234) ng/mlDDU Heparin Anti-Xa Level 0.22 L (0.3-0.7) U.I./ml Potassium 5.7 H (3.6-5.0) mmol/L BUN 31 H (9-20) mg/dL Creatinine 1.7 H (0.8-1.3) mg/dL NT-Pro-B Natriuret Pep (0-900) pg/mL 06/29/22 Range/Units 14:21 RBC (3.65-5.03) M/mm3 Hgb (11.8-15.2) gm/dl Hct (35.5-45.6) % MCV (84-94) fl MCH (28-32) pg MCHC (32-34) % RDW (13.2-15.2) % Lymph % (Auto) (13.4-35.0) % [place] % (Auto) (0.0-7.3) % Eos % (Auto) (0.0-4.3) % Lymph # (Auto) (1.2-5.4) K/mm3 [place] # (Auto) (0.0-0.8) K/mm3 Eos # (Auto) (0.0-0.4) K/mm3 Seg Neutrophils % (40.0-70.0) % D-Dimer (0-234) ng/mlDDU Heparin Anti-Xa Level 0.19 L (0.3-0.7) U.I./ml Potassium (3.6-5.0) mmol/L BUN (9-20) mg/dL Creatinine (0.8-1.3) mg/dL NT-Pro-B Natriuret Pep (0-900) pg/mL HEART Score - HEART Score Troponin: Troponin T < 0.010 ng/mL (0.00-0.029) 06/28/22 12:46
--- NOTE | 2022-06-29 16:51 | Consultation ---
History of Present Illness - Reason for Consult Consult date: 06/29/22 Pulmonary Embolus Requesting physician: WILLIAM SOLIS - History of Present Illness The patient is a 57-year-old male with a history of morbid obesity, who presented with complaints of hemoptysis. He states he began coughing up blood on Monday and this persisted on Monday which prompted him to present to the emergency department. He states that the hemoptysis has been associated with shortness of breath. He admits to dyspnea on exertion for approximately 1 month. He denies any previous history of PE or DVT however he does state that his right leg is constantly swollen. He denies any chest pain. The patient also admits to having been told on at least 2 occasions that he had an enlarged heart. He denies being started on any medications for management. He has no additional complaints at this time. Past History Past Medical History: diabetes, hypertension, hyperlipidemia Past Surgical History: Other (Back surgery x4, ORIF of his right ankle) Social history: . denies: smoking Family history: diabetes, hypertension Medications and Allergies Allergies Allergy/AdvReac Type Severity Reaction Status Date / Time shellfish derived AdvReac Vomiting Verified 06/28/22 12:23 Home Medications Medication Instructions Recorded Confirmed Last Taken Type Gabapentin [Neurontin] 800 mg PO TID 07/22/15 12/11/19 12/10/19 History Metformin HCl [Glucophage] 1,000 mg PO BID 07/22/15 12/11/19 12/10/19 History Pravastatin [Pravachol] 40 mg PO QHS 07/22/15 12/11/19 12/10/19 History risperiDONE [RisperiDONE] 4 mg PO BID 07/22/15 12/11/19 12/10/19 History Aspirin 81 mg PO DAILY 12/11/19 12/11/19 12/10/19 History Methadone 40 mg PO TID 12/11/19 12/11/19 12/10/19 History Aspirin EC [Halfprin EC] 81 mg PO QDAY tablet 12/19/19 Unknown Rx Citalopram 40 mg PO DAILY #30 12/19/19 Unknown Rx Citalopram [Celexa] 40 mg PO DAILY tablet 12/19/19 Unknown Rx Cyclobenzaprine [Flexeril 10 MG 10 mg PO PRN PRN #12 02/20/20 Unknown Rx TAB] Methadone [Dolophine] 40 mg PO Q8HR #12 tablet 12/19/19 Unknown Rx Metoprolol [Lopressor TAB] 50 mg PO BID #60 tablet 12/19/19 Unknown Rx lisinopriL [Zestril TAB] 20 mg PO QDAY #30 12/19/19 Unknown Rx oxyCODONE /ACETAMINOPHEN [Percocet 1 tab PO Q6H PRN #8 tablet 12/19/19 Unknown Rx 5/325 mg] risperiDONE [RisperDAL] 1 mg PO BID tablet 12/19/19 Unknown Rx risperiDONE [RisperDAL] 3 mg PO BID tablet 12/19/19 Unknown Rx Active Meds: Active Medications Acetaminophen (Acetaminophen 325 Mg Tab) 650 mg PO Q4H PRN PRN Reason: Pain MILD(1-3)/Fever >100.5/HUMPHREY Albuterol (Albuterol 2.5 Mg/3 Ml Nebu) 2.5 mg IH Q4HRT PRN PRN Reason: Shortness Of Breath Azithromycin (Azithromycin 250 Mg Tab) 500 mg PO QDAY [facility]; Protocol Stop: 07/03/22 10:01 Last Admin: 06/29/22 09:34 Dose: 500 mg Citalopram Hydrobromide (Citalopram 20 Mg Tab) 40 mg PO DAILY [facility] Last Admin: 06/29/22 15:31 Dose: 40 mg Cyclobenzaprine HCl (Cyclobenzaprine 10 Mg Tab) 10 mg PO Q8H PRN PRN Reason: Muscle Spasm Gabapentin (Gabapentin 400 Mg Cap) 800 mg PO TID [facility] Last Admin: 06/29/22 14:39 Dose: 800 mg Heparin Sodium (Porcine) (Heparin 10,000 Units/10 Ml Vial) 5,000 unit IV Q6H PRN PRN Reason: Anti-Xa Assay < 0.1 units/ml Last Admin: 06/28/22 23:32 Dose: 5,000 unit Hydromorphone HCl (Hydromorphone 0.5 Mg/0.5 Ml Inj) 0.5 mg IV Q8H PRN PRN Reason: Pain , Severe (7-10) Heparin Sodium/Sodium Chloride (Heparin/ 0.45% Nacl-25,000 Unit/500 Ml) 25,000 unit in 500 mls @ 30 mls/hr IV TITR [facility]; Protocol Last Titration: 06/29/22 15:05 Dose: 1,800 units/hr, 36 mls/hr Ceftriaxone Sodium (Rocephin/Ns 2 Gm/100 Ml) 2 gm in 100 mls @ 200 mls/hr IV Q24H [facility]; Protocol Stop: 07/03/22 19:59 Last Admin: 06/28/22 20:34 Dose: 200 mls/hr Sodium Chloride (Nacl 0.9% 1000 Ml) 1,000 mls @ 75 mls/hr IV DIRECT [facility] Last Admin: 06/29/22 15:31 Dose: 75 mls/hr Lisinopril (Lisinopril 20 Mg Tab) 20 mg PO QDAY [facility] Last Admin: 06/29/22 09:34 Dose: 20 mg Methadone HCl (Methadone 10 Mg Tab) 40 mg PO Q8HR [facility] Last Admin: 06/29/22 14:39 Dose: 40 mg Metoprolol Tartrate (Metoprolol Tartrate 50 Mg Tab) 50 mg PO BID [facility] Last Admin: 06/29/22 09:34 Dose: 50 mg Ondansetron HCl (Ondansetron 4 Mg/2 Ml Inj) 4 mg IV Q8H PRN PRN Reason: Nausea And Vomiting Oxycodone/Acetaminophen (Oxycodone /Acetaminophen 5-325mg Tab) 1 tab PO Q6H PRN PRN Reason: Pain, Moderate (4-6) Last Admin: 06/29/22 11:27 Dose: 1 tab Pravastatin Sodium (Pravastatin 40 Mg Tab) 40 mg PO QHS [facility] Last Admin: 06/28/22 23:28 Dose: 40 mg Risperidone (Risperidone 1 Mg Tab) 1 mg PO BID [facility] Sodium Chloride (Sodium Chloride 0.9% 10 Ml Flush Syringe) 10 ml IV BID [facility] Last Admin: 06/29/22 09:35 Dose: 10 ml Sodium Chloride (Sodium Chloride 0.9% 10 Ml Flush Syringe) 10 ml IV PRN PRN PRN Reason: LINE FLUSH Review of Systems All systems: negative Exam - Constitutional Vitals: Temp Pulse Resp BP Pulse Ox 98.3 F 72 22 140/79 93 06/29/22 16:27 06/29/22 16:27 06/29/22 16:27 06/29/22 16:27 06/29/22 16:27 General appearance: Present: no acute distress, obese - Respiratory Respiratory effort: normal - Cardiovascular Rhythm: regular - Extremities Extremities: pulses intact (Palpable dorsalis pedis pulses bilaterally) Extremity abnormal: edema (Pitting edema of the right lower extremity with dermatosclerosis, mild edema of the left lower extremity with slight dermatosclerosis.) - Abdominal General gastrointestinal: Present: soft Male genitourinary: Present: deferred - Rectal Rectal Exam: deferred Results - Labs CBC & Chem 7: 06/29/22 07:09 06/29/22 07:09 Labs: Abnormal lab results 06/28/22 06/28/22 06/28/22 Range/Units 15:13 16:18 17:07 RBC (3.65-5.03) M/mm3 Hgb 8.3 L (11.8-15.2) gm/dl Hct 25.5 L (35.5-45.6) % MCV (84-94) fl MCH (28-32) pg MCHC (32-34) % RDW (13.2-15.2) % Lymph % (Auto) (13.4-35.0) % [place] % (Auto) (0.0-7.3) % Eos % (Auto) (0.0-4.3) % Lymph # (Auto) (1.2-5.4) K/mm3 [place] # (Auto) (0.0-0.8) K/mm3 Eos # (Auto) (0.0-0.4) K/mm3 Seg Neutrophils % (40.0-70.0) % D-Dimer 306.39 H (0-234) ng/mlDDU Heparin Anti-Xa Level (0.3-0.7) U.I./ml Potassium (3.6-5.0) mmol/L BUN (9-20) mg/dL Creatinine (0.8-1.3) mg/dL NT-Pro-B Natriuret Pep 2480 H (0-900) pg/mL 06/29/22 06/29/22 06/29/22 Range/Units 07:09 07:09 07:09 RBC 3.34 L (3.65-5.03) M/mm3 Hgb 8.2 L (11.8-15.2) gm/dl Hct 26.4 L (35.5-45.6) % MCV 79 L (84-94) fl MCH 25 L (28-32) pg MCHC 31 L (32-34) % RDW 17.5 H (13.2-15.2) % Lymph % (Auto) 9.2 L (13.4-35.0) % [place] % (Auto) 13.3 H (0.0-7.3) % Eos % (Auto) 5.5 H (0.0-4.3) % Lymph # (Auto) 0.8 L (1.2-5.4) K/mm3 [place] # (Auto) 1.2 H (0.0-0.8) K/mm3 Eos # (Auto) 0.5 H (0.0-0.4) K/mm3 Seg Neutrophils % 71.1 H (40.0-70.0) % D-Dimer (0-234) ng/mlDDU Heparin Anti-Xa Level 0.22 L (0.3-0.7) U.I./ml Potassium 5.7 H (3.6-5.0) mmol/L BUN 31 H (9-20) mg/dL Creatinine 1.7 H (0.8-1.3) mg/dL NT-Pro-B Natriuret Pep (0-900) pg/mL 06/29/22 Range/Units 14:21 RBC (3.65-5.03) M/mm3 Hgb (11.8-15.2) gm/dl Hct (35.5-45.6) % MCV (84-94) fl MCH (28-32) pg MCHC (32-34) % RDW (13.2-15.2) % Lymph % (Auto) (13.4-35.0) % [place] % (Auto) (0.0-7.3) % Eos % (Auto) (0.0-4.3) % Lymph # (Auto) (1.2-5.4) K/mm3 [place] # (Auto) (0.0-0.8) K/mm3 Eos # (Auto) (0.0-0.4) K/mm3 Seg Neutrophils % (40.0-70.0) % D-Dimer (0-234) ng/mlDDU Heparin Anti-Xa Level 0.19 L (0.3-0.7) U.I./ml Potassium (3.6-5.0) mmol/L BUN (9-20) mg/dL Creatinine (0.8-1.3) mg/dL NT-Pro-B Natriuret Pep (0-900) pg/mL - Imaging and Cardiology CT scan - chest: image reviewed Venous US: image reviewed Assessment and Plan The patient is a 57-year-old male with complaints of hemoptysis who recently underwent a CTA of his chest that appeared to have thrombus within the right pulmonary artery as well as the segmental vessels. Given the patient's body habitus and some motion artifact it was difficult to determine if the patient ac tually had a PE although it appeared that there was thrombus within the artery. He underwent a pulmonary perfusion study that was low probability. CTA also demonstrated the patient has pulmonary artery enlargement with the pulmonary artery measuring 34 mm. His labs revealed a slightly elevated BNP with a slightly elevated D-dimer however his troponin was negative. Additionally the patient has oxygen saturations in the 90s on room air as well as a heart rate in the 70s and a normal systolic blood pressure. It is likely that the patient does have a pulmonary embolus however given the findings it is chronic. His venous duplex was negative for DVT. I would recommend no vascular surgery intervention however the patient should be on anticoagulation with heparin and converted to oral anticoagulation. Recommend a hypercoagulable work-up. I have also recommended compression hose to bilateral lower extremity to assist with the swelling as the patient has evidence of chronic venous insufficiency. The patient should also have follow-up with the racing secretary and handicapper for his pulmonary nodule today to be followed routinely. I discussed this with the patient was expressed understanding and agrees.
--- NOTE | 2022-06-29 18:17 | Electrocardiograph Report ---
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
[2022-06-29] MEDS: cefTRIAXone/NS 2 GM/100 ML 2 GM/100 ML BAG IV SCH (20:44)
[2022-06-29] MEDS: PRAVASTATIN 40 MG TAB PO SCH (21:45)
[2022-06-30] MEDS: SODIUM CHLORIDE 0.9% 1000 ML 1,000 ML IV SCH (04:17)
[2022-06-30] MEDS: METHADONE 10 MG TAB PO SCH ×2 (05:47→14:07)
[2022-06-30 08:49] LABS: Hematocrit 27.7 % (35.5-45.6); Hemoglobin 8.8 gm/dl (11.8-15.2)
[2022-06-30] MEDS: LISINOPRIL 20 MG TAB PO SCH (09:20)
[2022-06-30] MEDS: GABAPENTIN 400 MG CAP PO SCH (09:20)
[2022-06-30] MEDS: CITALOPRAM 20 MG TAB PO SCH (09:21)
[2022-06-30] MEDS: AZITHROMYCIN 250 MG TAB PO SCH (09:21)
[2022-06-30] MEDS: METOPROLOL TARTRATE 50 MG TAB PO SCH (09:21)
[2022-06-30] MEDS: risperiDONE 1 MG TAB PO SCH (09:21)
[2022-06-30] MEDS: oxyCODONE /ACETAMINOPHEN 5-325MG TAB PO PRN (12:36)
[2022-06-30] MEDS ORDERED: amLODIPine 10 MG TAB PO SCH (13:00)
--- NOTE | 2022-06-30 13:20 | Consultation ---
History of Present Illness Consult date: 06/30/22 Reason for consult: dyspnea, cough, obstructive sleep apnea History of present illness: 57 YO Male with Obesity Hypoventilation Syndrome, HTN, HLD, DM, Cardiomegaly,Metabolic Syndrome, OA, HBV, Mild Intermittent Asthma, GERD, Narcotic Dependence, Chronic Pain Syndrome on Methadone Maintenance Program presents to ED for evaluation. Patient reported coughing up blood mixed with yellow sputum. Patient states that he has experienced multiple coughing episodes during his sleep over the past week. Patient states that he also experienced multiple episodes of coughing up blood. Patient acknowledges shortness of breath . Patient transported to [facility] via private vehicle for further care and evaluation of the aforementioned symptoms. The patient was seen and evaluated in the emergency department. All lab and imaging studies reviewed. Patient to have pneumonia, as well as suspected right pulmonary embolus, as well as chronic right pulmonary nodule. Patient underwent CT angio of the chest which was nonconclusive Patient initiated on therapeutic anticoagulation in the emergency department Patient admitted to medical floor due to increased risk of worsening symptoms after medical stabilization. Patient initiated on pneumonia protocol. Patient denies fever, chills, palpitation, skin rash, recent contact, known exposure to COVID-19. Patient has history back surgery x4 Patient has history of smoking 1 pack 22 years. Stopped smoking 12 years ago. Drinks beer every day. Denies drug abuse. 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 Patient . Children 2. Allergic to shell fish . Patient alert, awake . Resting on room air. O2 saturation 95%. Patient denies chest pain, shortness of breath or cough or hemoptysis at this time. Patient afebrile. Has leukocytosis on admission. Blood pressure 151/89, Pulse 71 , respirations 24 Chest xray 06/28/22 reported Mild patchy predominantly perihilar pulmonary opa cities greater on the right. Patient has CTA of chest 06/28/22 reported 1. Essentially nondiagnostic evaluation of the pulmonary arteries due to poor contrast bolus timing and concentration. Questionable large hypodensity within the distal lobar branch of the right lower lobe. This has the potential to represent a large pulmonary embolism, however this cannot be definitively stated given the limitations of this study. Additional smaller hypodensities may be present within segmental branches of the upper and lower lobes as well. Patchy areas of consolidation are seen throughout the right lower lobe and much of the central right upper lobe. This may represent multifocal pneumonia, however they are concerning for developing pulmonary infarction in the potential setting of PE. The main pulmonary artery is mildly enlarged measuring 34 mm in cross-section, which can be seen in the setting of pulmonary artery hypertension. Venous doppler studies of lower legs 06/28/22 reported The exam is limited due to patient body habitus. Accounting for this, no sonographic evidence for DVT in either lower extremity. Patient has pulmonary nuclear perfusion scan 06/29/2022 reported No pulmonary arterial perfusion defect is detected on perfusion scan to suggest pulmonary embolism. Patient is on Zithromax, Ceftriaxine, I/V Heparin. Albuterol inhaler Recommend GI prophylaxis. Past History Past Medical History: diabetes, GERD, hypertension, hyperlipidemia Past Surgical History: Other (Back surgery x4, ORIF of his right ankle) Social history: . denies: smoking Family history: diabetes, hypertension Medications and Allergies Allergies Allergy/AdvReac Type Severity Reaction Status Date / Time shellfish derived AdvReac Vomiting Verified 06/28/22 12:23 Home Medications Medication Instructions Recorded Confirmed Last Taken Type Pravastatin [Pravachol] 40 mg PO QHS 07/22/15 12/11/19 12/10/19 History Aspirin 81 mg PO DAILY 12/11/19 12/11/19 12/10/19 History Citalopram [Celexa] 40 mg PO DAILY tablet 12/19/19 Unknown Rx Cyclobenzaprine [Flexeril 10 MG 10 mg PO PRN PRN #12 12/19/19 Unknown Rx TAB] Methadone [Dolophine] 40 mg PO Q8HR #12 tablet 12/19/19 Unknown Rx Metoprolol [Lopressor TAB] 50 mg PO BID #60 tablet 12/19/19 Unknown Rx risperiDONE [RisperDAL] 1 mg PO BID tablet 12/19/19 Unknown Rx Azithromycin [Zithromax TAB] 500 mg PO QDAY #5 tablet 06/30/22 Unknown Rx Gabapentin 400 mg PO TID capsule 06/30/22 Unknown Rx amLODIPine 10 mg PO QDAY #30 tablet 06/30/22 Unknown Rx Active Meds: Active Medications Acetaminophen (Acetaminophen 325 Mg Tab) 650 mg PO Q4H PRN PRN Reason: Pain MILD(1-3)/Fever >100.5/HUMPHREY Albuterol (Albuterol 2.5 Mg/3 Ml Nebu) 2.5 mg IH Q4HRT PRN PRN Reason: Shortness Of Breath Amlodipine Besylate (Amlodipine 10 Mg Tab) 10 mg PO QDAY SHELLIE Azithromycin (Azithromycin 250 Mg Tab) 500 mg PO QDAY [facility]; Protocol Stop: 07/03/22 10:01 Last Admin: 06/30/22 09:21 Dose: 500 mg Citalopram Hydrobromide (Citalopram 20 Mg Tab) 40 mg PO DAILY [facility] Last Admin: 06/30/22 09:21 Dose: 40 mg Cyclobenzaprine HCl (Cyclobenzaprine 10 Mg Tab) 10 mg PO Q8H PRN PRN Reason: Muscle Spasm Gabapentin (Gabapentin 400 Mg Cap) 400 mg PO TID [facility] Heparin Sodium (Porcine) (Heparin 10,000 Units/10 Ml Vial) 5,000 unit IV Q6H PRN PRN Reason: Anti-Xa Assay < 0.1 units/ml Last Admin: 06/28/22 23:32 Dose: 5,000 unit Hydromorphone HCl (Hydromorphone 0.5 Mg/0.5 Ml Inj) 0.5 mg IV Q8H PRN PRN Reason: Pain , Severe (7-10) Heparin Sodium/Sodium Chloride (Heparin/ 0.45% Nacl-25,000 Unit/500 Ml) 25,000 unit in 500 mls @ 30 mls/hr IV TITR [facility]; Protocol Last Titration: 06/30/22 09:30 Dose: Infused Ceftriaxone Sodium (Rocephin/Ns 2 Gm/100 Ml) 2 gm in 100 mls @ 200 mls/hr IV Q24H [facility]; Protocol Stop: 07/03/22 19:59 Last Admin: 06/29/22 20:44 Dose: 200 mls/hr Sodium Chloride (Nacl 0.9% 1000 Ml) 1,000 mls @ 75 mls/hr IV DIRECT SHELLIE Last Admin: 06/30/22 04:17 Dose: 75 mls/hr Insulin Human Lispro (Insulin Lispro 100 Unit/Ml) 0 unit SUB-Q ACHS [facility]; Protocol Methadone HCl (Methadone 10 Mg Tab) 40 mg PO Q8HR [facility] Last Admin: 06/30/22 05:47 Dose: 40 mg Metoprolol Tartrate (Metoprolol Tartrate 50 Mg Tab) 50 mg PO BID [facility] Last Admin: 06/30/22 09:21 Dose: 50 mg Ondansetron HCl (Ondansetron 4 Mg/2 Ml Inj) 4 mg IV Q8H PRN PRN Reason: Nausea And Vomiting Oxycodone/Acetaminophen (Oxycodone /Acetaminophen 5-325mg Tab) 1 tab PO Q6H PRN PRN Reason: Pain, Moderate (4-6) Last Admin: 06/30/22 12:36 Dose: 1 tab Pravastatin Sodium (Pravastatin 40 Mg Tab) 40 mg PO QHS [facility] Last Admin: 06/29/22 21:45 Dose: 40 mg Risperidone (Risperidone 1 Mg Tab) 1 mg PO BID [facility] Last Admin: 06/30/22 09:21 Dose: 1 mg Sodium Chloride (Sodium Chloride 0.9% 10 Ml Flush Syringe) 10 ml IV BID [facility] Last Admin: 06/30/22 09:23 Dose: 10 ml Sodium Chloride (Sodium Chloride 0.9% 10 Ml Flush Syringe) 10 ml IV PRN PRN PRN Reason: LINE FLUSH Last Admin: 06/30/22 09:21 Dose: 10 ml Review of Systems All systems: negative Physical Examination Vital signs: Vital Signs Temp Pulse Resp BP Pulse Ox 97.7 F 70 16 144/74 93 06/28/22 12:12 06/28/22 12:12 06/28/22 12:12 06/28/22 12:12 06/28/22 12:12 General appearance: no acute distress, alert, other (Morbidly Obese.) Eyes: non-icteric ENT: oropharynx moist Neck: supple, no JVD Effort: normal Ascultation: Bilateral: diminished breath sounds Cardiovascular: regular rate and rhythm Gastrointestinal: normoactive bowel sounds, soft, non-tender Integumentary: normal Extremities: no cyanosis, no edema Musculoskeletal: no deformities Gait: other (Resting in bed at this time.) normal mental status, non-focal exam, pupils equal and round mood appropriate, affect normal Results - Laboratory Findings CBC and BMP: 06/30/22 08:23 06/30/22 15:45 PT/INR, D-dimer PT 14.9 Sec. (12.2-14.9) 06/28/22 16:18 INR 1.05 (0.87-1.13) 06/28/22 16:18 D-Dimer 306.39 ng/mlDDU (0-234) H 06/28/22 16:18 Abnormal lab findings: Abnormal Labs 06/28/22 06/28/22 06/28/22 12:46 12:46 15:13 WBC 12.4 H RBC 3.56 L Hgb 8.9 L Hct 28.3 L MCV 79 L MCH 25 L MCHC RDW 17.6 H Lymph % (Auto) 10.0 L [place] % (Auto) 12.3 H Eos % (Auto) Lymph # (Auto) [place] # (Auto) 1.5 H Eos # (Auto) 0.5 H Seg Neutrophils % 73.3 H Seg Neutrophils # 9.1 H D-Dimer Heparin Anti-Xa Level Sodium 136 L Potassium 5.3 H Chloride 96.8 L BUN 36 H Creatinine 1.9 H Glucose 106 H POC Glucose NT-Pro-B Natriuret Pep 2480 H Albumin 3.7 L 06/28/22 06/28/22 06/29/22 16:18 17:07 07:09 WBC RBC 3.34 L Hgb 8.3 L 8.2 L Hct 25.5 L 26.4 L MCV 79 L MCH 25 L MCHC 31 L RDW 17.5 H Lymph % (Auto) 9.2 L [place] % (Auto) 13.3 H Eos % (Auto) 5.5 H Lymph # (Auto) 0.8 L [place] # (Auto) 1.2 H Eos # (Auto) 0.5 H Seg Neutrophils % 71.1 H Seg Neutrophils # D-Dimer 306.39 H Heparin Anti-Xa Level Sodium Potassium Chloride BUN Creatinine Glucose POC Glucose NT-Pro-B Natriuret Pep Albumin 06/29/22 06/29/22 06/29/22 07:09 07:09 14:21 WBC RBC Hgb Hct MCV MCH MCHC RDW Lymph % (Auto) [place] % (Auto) Eos % (Auto) Lymph # (Auto) [place] # (Auto) Eos # (Auto) Seg Neutrophils % Seg Neutrophils # D-Dimer Heparin Anti-Xa Level 0.22 L 0.19 L Sodium Potassium 5.7 H Chloride BUN 31 H Creatinine 1.7 H Glucose POC Glucose NT-Pro-B Natriuret Pep Albumin 06/30/22 06/30/22 06/30/22 08:18 08:23 08:23 WBC RBC Hgb 8.8 L Hct 27.7 L MCV MCH MCHC RDW Lymph % (Auto) [place] % (Auto) Eos % (Auto) Lymph # (Auto) [place] # (Auto) Eos # (Auto) Seg Neutrophils % Seg Neutrophils # D-Dimer Heparin Anti-Xa Level 0.29 L Sodium Potassium Chloride BUN Creatinine Glucose POC Glucose 131 H NT-Pro-B Natriuret Pep Albumin - Diagnostic Findings Chest x-ray: report reviewed, image reviewed Additional studies: CHEST 2 VIEWS 06/28/22 INDICATION / CLINICAL INFORMATION: Dyspnea. COMPARISON: 12/11/2019 FINDINGS: SUPPORT DEVICES: None. HEART / MEDIASTINUM: No significant abnormality. LUNGS / PLEURA: There are patchy predominantly perihilar pulmonary opacities greater on the right. No effusion is seen. No pneumothorax. ADDITIONAL FINDINGS: No significant additional findings. IMPRESSION: 1. Mild patchy predominantly perihilar pulmonary opacities greater on the right. CTA CHEST WITH CONTRAST 06/28/2022 INDICATION / CLINICAL INFORMATION: CP HEMOPTYSIS. TECHNIQUE: Axial CT images were obtained through the chest after injection of IV contrast. 3 plane MIP and/or 3D reconstructions were produced. All CT scans at this location are performed using CT dose reduction for [employer] by means of automated exposure control. COMPARISON: CTA chest 12/12/2019, 07/22/2015, chest radiograph of same date. FINDINGS: Extremely limited evaluation of the pulmonary arteries due to contrast bolus timing and concentration. PULMONARY EMBOLUS: Questionable large filling defect within the distal lobar branch of the right lower lobe. Similar questionable filling defects are seen within segmental branches of the right upper lobe. Additional filling defects within the lungs cannot be excluded. The main pulmonary artery is mildly enlarged measuring up to 34 mm in cross-section. THORACIC AORTA: Mild atherosclerotic calcification without acute abnormality. HEART: Normal heart size. CORONARY ARTERY CALCIFICATION: Absent -- None. MEDIASTINUM / TISH: No significant abnormality. PLEURA: No pleural effusion. No pneumothorax. LUNGS: There are patchy areas of consolidation throughout the entirety of the right lower lobe and much of the central right upper lobe. There is a 6 mm pulmonary nodule within the right middle lobe (series 4 image 206) which is present dating back to 07/22/2015. ADDITIONAL FINDINGS: None. UPPER ABDOMEN: No acute findings. SKELETAL STRUCTURES: No significant osseous abnormality. IMPRESSION: 1. Essentially nondiagnostic evaluation of the pulmonary arteries due to poor contrast bolus timing and concentration. 2. Questionable large hypodensity within the distal lobar branch of the right lower lobe. This has the potential to represent a large pulmonary embolism, however this cannot be definitively stated given the limitations of this study. Additional smaller hypodensities may be present within segmental branches of the upper and lower lobes as well. 3. Patchy areas of consolidation are seen throughout the right lower lobe and much of the central right upper lobe. This may represent multifocal pneumonia, however they are concerning for developing pulmonary infarction in the potential setting of PE. 4. The main pulmonary artery is mildly enlarged measuring 34 mm in cross-section, which can be seen in the setting of pulmonary artery hypertension. DUPLEX DOPPLER LOWER EXTREMITY VEINS, BILATERAL 06/28/22 INDICATION / CLINICAL INFORMATION: PE; eval for DVTs. TECHNIQUE: Duplex doppler imaging was performed through the veins of both lower extremities using venous compression and other maneuvers. COMPARISON: None available. FINDINGS: RIGHT COMMON FEMORAL VEIN: Negative. RIGHT FEMORAL VEIN: Negative. RIGHT POPLITEAL VEIN: Negative. RIGHT CALF VEINS: Negative. LEFT COMMON FEMORAL VEIN: Negative. LEFT FEMORAL VEIN: Negative. LEFT POPLITEAL VEIN: Negative. LEFT CALF VEINS: Negative. ADDITIONAL FINDINGS: None. IMPRESSION: 1. The exam is limited due to patient body habitus. Accounting for this, no sonographic evidence for DVT in either lower extremity. NUCLEAR MEDICINE PERFUSION SCAN 06/29/22 INDICATION: abnormal CTA chest; PE; rads recommend VQ CORRELATION: CTA chest 06/28/2022 RADIOPHARMACEUTICAL: Perfusion: 5.5 mCi Tc-99m MAA given IV FINDINGS: Limited CTA of the chest performed earlier today was reviewed. Perfusion images show symmetric and uniform radiotracer distribution throughout bilateral lung zones with no evidence of unmatched segmental perfusion defects. Normal cardiac silhouette. IMPRESSION: No pulmonary arterial perfusion defect is detected on perfusion scan to suggest pulmonary embolism. Assessment and Plan 57 YO Male with Obesity Hypoventilation Syndrome, HTN, HLD, DM, Cardiomegaly,Metabolic Syndrome, OA, HBV, Mild Intermittent Asthma, GERD, Narcotic Dependence, Chronic Pain Syndrome on Methadone Maintenance Program presents to ED for evaluation. Patient reported coughing up blood mixed with yellow sputum. Patient states that he has experienced multiple coughing episodes during his sleep over the past week. Patient states that he also experienced multiple episodes of coughing up blood. Patient acknowledges shortness of breath . Patient transported to [facility] via private vehicle for [facility] care and evaluation of the aforementioned symptoms. The patient was seen and evaluated in the emergency department. All lab and imaging studies reviewed. Patient to have pneumonia, as well as suspected right pulmonary embolus, as well as chronic right pulmonary nodule. Patient underwent CT angio of the chest which was nonconclusive Patient initiated on therapeutic anticoagulation in the emergency department Patient admitted to medical floor due to increased risk of worsening symptoms after medical stabilization. Patient initiated on pneumonia protocol. Patient denies fever, chills, palpitation, skin rash, recent contact, known exposure to COVID-19. Patient has history back surgery x4 Patient has history of smoking 1 pack 22 years. Stopped smoking 12 years ago. Drinks beer every day. Denies drug abuse. 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 Patient . Children 2. Allergic to shell fish . Patient alert, awake . Resting on room air. O2 saturation 95%. Patient denies chest pain, shortness of breath or cough or hemoptysis at this time. Patient afebrile. Has leukocytosis on admission. Blood pressure 151/89, Pulse 71 , respirations 24 Chest xray 06/28/22 reported Mild patchy predominantly perihilar pulmonary opacities greater on the right. Patient has CTA of chest 06/28/22 reported 1. Essentially nondiagnostic evaluation of the pulmonary arteries due to poor contrast bolus timing and concentration. Questionable large hypodensity within the distal lobar branch of the right lower lobe. This has the potential to represent a large pulmonary embolism, however this cannot be definitively stated given the limitations of this study. Additional smaller hypodensities may be present within segmental branches of the upper and lower lobes as well. Patchy areas of consolidation are seen throughout the right lower lobe and much of the central right upper lobe. This may represent multifocal pneumonia, however they are concerning for developing pulmonary infarction in the potential setting of PE. The main pulmonary artery is mildly enlarged measuring 34 mm in cross-section, which can be seen in the setting of pulmonary artery hypertension. Venous doppler studies of lower legs 06/28/22 reported The exam is limited due to patient body habitus. Accounting for this, no sonographic evidence for DVT in either lower extremity. Patient has pulmonary nuclear perfusion scan 06/29/2022 reported No pulmonary arterial perfusion defect is detected on perfusion scan to suggest pulmonary embolism. Patient is on Zithromax, Ceftriaxine, I/V Heparin. Albuterol inhaler Recommend GI prophylaxis. - Patient Problems (1) Hypertension Status: Chronic Qualifiers: Hypertension type: essential hypertension Plan to address problem: Management as per primary care. (2) Morbid obesity Status: Chronic Plan to address problem: Recommend to loose weight. (3) CHAZ (obstructive sleep apnea) Status: Chronic Plan to address problem: Patient says he has history of sleep apnea. Says uses CPAP at home. Recommend to place him on CPAP during night time. (4) Obesity hypoventilation syndrome Status: Acute Plan to address problem: Recommend Day time ABGs on room air. 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 (6) Hemoptysis Status: Acute Plan to address problem: Improved. Patient says no hemoptysis now. (7) Pulmonary embolism Status: Acute Qualifiers: Chronicity: acute Plan to address problem: No conclusive evidence pulmonary embolism reported. Venous doppler studies of both legs reported no sonographic evidence of DVT. Perfusion lung scan reported No pulmonary arterial perfusion defect is detected on perfusion scan to suggest pulmonary embolism. Patient has no complaint of chest pain, shortness of breath, or hemoptysis at this time. Based on above test results, likely patient does not have pulmonary embolism at this time. (8) Pneumonia Status: Acute Plan to address problem: Chest xray 06/28/22 reported Mild patchy predominantly perihilar pulmonary opacities greater on the right. Patient is on Zithromax and Ceftriaxone.
[2022-06-30] MEDS ORDERED: GABAPENTIN 400 MG CAP PO SCH (14:00)
--- NOTE | 2022-06-30 14:22 | Discharge Summary ---
Providers - Providers Date of Admission: 06/28/22 18:24 Date of discharge: 06/30/22 Attending physician: NIGHAT SANCHEZ 06/28/22 18:04 Consult to Physician [CONS] Urgent Comment: Consulting Provider: RODRIGO FELIPE Physician Instructions: Reason For Exam: PE 06/29/22 14:17 Consult to Physician [CONS] Routine Comment: Consulting Provider: PETE BOWEN Physician Instructions: Reason For Exam: pulmonary embolism ? Primary care physician: LUCIANA GIRALDO Hospitalization Condition: Stable Disposition: 01 HOME / SELF CARE / HOMELESS Final Discharge Diagnosis (Prints w/discharge instructions): -- Obesity hypoventilation syndrome. -- b/l PNA. -- morbis obesity. -- JUAN likely vasomotor nephropathy Time spent for discharge: 34 minutes Core Measure Documentation - Palliative Care Palliative Care/ Comfort Measures: Not Applicable - Core Measures Any of the following diagnoses?: none Exam - Constitutional Vitals: Temp Pulse Resp BP Pulse Ox 98.1 F 71 24 151/89 95 06/30/22 11:58 06/30/22 11:58 06/30/22 11:58 06/30/22 11:58 06/30/22 11:58 Plan Activity: advance as tolerated Weight Bearing Status: Weight Bear as Tolerated Diet: low fat, low salt Follow up with: LUCIANA GIRALDO MD [Primary Care Provider] - 7 Days Forms: Accompanied Note Prescriptions: amLODIPine 10 mg PO QDAY #30 tablet Azithromycin [Zithromax TAB] 500 mg PO QDAY #5 tablet
[2022-06-30] MEDS ORDERED: HYDROcodone/ACETAMINOPHEN 5-325 MG TAB PO PRN (15:33)
[2022-06-30 15:41] LABS: ABG Base Excess 2.1 mmol/L (-2.0-3.0); ABG HCO3 26.8 mmol/L (20.0-26.0); ABG Methemoglobin 0.6 % (0.0-1.5); ABG Oxygen Saturation 98.1 % (95.0-99.0); ABG PCO2 42.6 mm Hg; ABG PH 7.416 pH Units (7.350-7.450); ABG PO2 67.9 mm Hg (80.0-90.0)
[2022-06-30] MEDS ORDERED: INSULIN LISPRO 100 UNIT/ML SUB-Q SCH (16:30)
[2022-06-30 16:56] LABS: BUN/Creatinine Ratio 14; Blood Urea Nitrogen 18 mg/dL (9-20); Hemolysis Index 11
[2022-06-30 17:05] VITALS: BP 156/88
[2022-06-30] MEDS ORDERED: HEPARIN 5,000 UNIT/1 ML VIAL SUB-Q SCH (22:00)
== END 2022-06-30 18:31 | disposition home or self-care (01) | DRG 193 ==
LOC: ED 10:29 → 3A 18:24
PROVIDERS: ADMIT Internal Medicine; ATTEND Internal Medicine
PROC: 4A033R1 Measurement of Arterial Saturation, Peripheral, Percutaneous Approach (ICD-10-PCS; principal; 2022-06-30)
DX: J18.9 Pneumonia, unspecified organism (principal); N17.0 Acute kidney failure with tubular necrosis; F11.20 Opioid dependence, uncomplicated; E66.2 Morbid (severe) obesity with alveolar hypoventilation; Z68.43 Body mass index [BMI] 50.0-59.9, adult; R91.1 Solitary pulmonary nodule; G89.4 Chronic pain syndrome; J45.20 Mild intermittent asthma, uncomplicated; E88.81 Metabolic syndrome and other insulin resistance; M19.90 Unspecified osteoarthritis, unspecified site; K21.9 Gastro-esophageal reflux disease without esophagitis; I10 Essential (primary) hypertension; E78.2 Mixed hyperlipidemia; E11.9 Type 2 diabetes mellitus without complications; Z79.84 Long term (current) use of oral hypoglycemic drugs; Z71.3 Dietary counseling and surveillance; Z87.891 Personal history of nicotine dependence; Z83.3 Family history of diabetes mellitus; Z82.49 Family history of ischemic heart disease and other diseases of the circulatory system
CPT/HCPCS: 36415; 36600; 71046; 71275; 78580; 80048; 80053; 82803; 82962; 83690; 83880; 84484; 85014; 85018; 85025; 85049; 85379; 85520; 85610; 85730; 87040; 93005; 93306; 93970; G0378; J3490; A9540; C8929; J0696; J1644; J7030; Q9967